=== PATIENT | female | born 1955 | race Caucasian/White ===

== ENCOUNTER → 2017-08-17 | Outpatient (CLI) | payer OTHER | LOC: FIMAGING 14:04 | PROVIDERS: ATTEND Family Medicine | DX: Z12.31 Encounter for screening mammogram for malignant neoplasm of breast (principal) | CPT/HCPCS: G0202 ==

== ENCOUNTER → 2017-08-31 | Outpatient (CLI) | payer OTHER | LOC: FIMAGING 12:01 | PROVIDERS: ATTEND Family Medicine | DX: N60.02 Solitary cyst of left breast (principal) ==

== ENCOUNTER → 2018-10-03 | Outpatient (CLI) | payer OTHER, MEDICARE | LOC: BHLMT 11:30 | PROVIDERS: ATTEND Nurse Practitioner Family | DX: G47.30 Sleep apnea, unspecified (principal); I10 Essential (primary) hypertension; E78.5 Hyperlipidemia, unspecified | CPT/HCPCS: 93005-PO ==

== ENCOUNTER → 2018-10-17 | Outpatient (CLI) | payer OTHER, MEDICARE | LOC: FIMAGING 12:39 | PROVIDERS: ATTEND Family Medicine | DX: R92.8 Other abnormal and inconclusive findings on diagnostic imaging of breast (principal) ==

== ENCOUNTER → 2018-11-06 | Outpatient (CLI) | payer OTHER, MEDICARE ==
[~2018-11-06] MED LIST: THROMBIN (BOVINE) 5,000 UNIT VIAL TP ONE
== END ==
LOC: FIMAGING 07:35
PROVIDERS: ATTEND Family Medicine
DX: N63.20 Unspecified lump in the left breast, unspecified quadrant (principal); D05.12 Intraductal carcinoma in situ of left breast

== ENCOUNTER → 2018-12-05 | Outpatient (CLI) | payer OTHER, MEDICARE ==
[~2018-12-05] MED LIST changes: +GADOBUTROL 10 ML VIAL IVP ONE; -THROMBIN (BOVINE) 5,000 UNIT VIAL TP ONE
== END ==
LOC: FIMAGING 11:10
PROVIDERS: ATTEND Surgery
DX: C50.211 Malignant neoplasm of upper-inner quadrant of right female breast (principal); C50.212 Malignant neoplasm of upper-inner quadrant of left female breast; Z17.0 Estrogen receptor positive status [ER+]
CPT/HCPCS: A9585; C8908; 82565-PO

== ENCOUNTER 2019-01-08 06:28 | Day surgery (SDC) | payer OTHER, MEDICARE ==
--- NOTE | 2019-01-06 16:48 | GHP ---
[f rep st] PREOP HISTORY AND PHYSICAL DATE OF ADMISSION: 01/08/2019 DATE OF SURGERY: 01/08/2019. PREOPERATIVE DIAGNOSIS: Left breast invasive ductal carcinoma. HISTORY OF PRESENT ILLNESS: A 63-year-old woman who underwent screening mammogram in August 2018 which showed an architectural distortion of the deep superior left breast at approximately 11 o'clock position, 5 cm from the nipple. Ultrasound on 10/07/2018 showed 1 cm hypoechoic lesion at 11 o'clock of the left breast, as well as a lymph node with thickened cortex measuring 5 mm. Biopsy was done on 11/07/2018, showed invasive ductal carcinoma. Lymph node was negative for malignancy. The mass is not palpable. She has no other breast changes including nipple drainage. Family history significant for maternal aunt with breast cancer. First menses at age 13. No hormone replacement therapy. She is G2, P2, and 22 years old at the of her 1st child. She did have a breast MRI performed on 12/05/2018 which showed the known breast malignancy, left axillary lymph nodes with slightly thickened cortex, and no evidence of right breast cancer. PAST MEDICAL HISTORY: Allergies, asthma, basal cell, depression/anxiety, hypertension, hyperlipidemia, nephrolithiasis, sleep apnea. PAST SURGICAL HISTORY: Tubal ligation, Mohs surgery for basal cell. ALLERGIES: Amlodipine, atenolol, bupropion, Bystolic, Cardizem, diltiazem, Benadryl, estrogen, hydrochlorothiazide, irbesartan, lisinopril, losartan, Micardis, naproxen, Sudafed, sulfa, Zoloft. FAMILY HISTORY: Significant for breast cancer in a maternal aunt; colon cancer , stroke in maternal grandmother. Alcoholism. SOCIAL HISTORY: She is with 2 children. 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 She is a former smoker, quit at age 56, and denies current tobacco, alcohol or recreational drug use. REVIEW OF SYSTEMS: No fevers or chills. PHYSICAL EXAMINATION: GENERAL: Well-developed, well-nourished woman in no acute distress. HEENT: Normocephalic, atraumatic. No hearing deficits. Pupils equal and round. No scleral icterus. Mucous membranes moist. Trachea midline. RESPIRATORY: No increased work of breathing. Clear to auscultation bilaterally. CARDIOVASCULAR: No peripheral edema. Regular rate and rhythm. BREASTS: Exam performed in upright and supine position. No new findings. LYMPH: No cervical, supraclavicular, axillary lymphadenopathy. PSYCH: Mood and affect normal. NEURO: Grossly intact. IMPRESSION AND PLAN: A 63-year-old woman with new left breast invasive ductal carcinoma. There is no overt sign of malignancy in axilla but slightly thickened cortex. We will proceed with left breast lumpectomy with mammogram needle localization and left sentinel lymph node biopsy. We discussed risks of surgery including, but not limited to, heart attack, stroke, blood clots, or . We discussed risk of infection, bleeding, damage to surrounding structures, need for additional procedures, or lymphedema. She understands the risks and would like to proceed. The patient additionally seen by Dr. Guera Kapadia, who agrees with the above impression and plan. /[id number]/MODL MTDD
[2019-01-08] MEDS ORDERED: ceFAZolin 2 GM/DEXTROSE 100 ML IV ONE (06:53)
[2019-01-08] MEDS ORDERED: LIDOCAINE 1% 300 MG/30 ML SDV ONE ×2 (07:11→08:05)
[2019-01-08] MEDS ORDERED: LR 1,000 ML IV ONE (07:18)
[2019-01-08] MEDS ORDERED: BUPIVACAINE 0.5% 30 ML SDV ONE ×2 (08:05→09:41)
[2019-01-08] MEDS ORDERED: MIDAZOLAM 2 MG/2 ML VIAL IVP ONE (09:16)
--- NOTE | 2019-01-08 09:16 | PDANEPAE ---
ANE History of Present Illness 63 yo for lumpectomy/snb ANE Past Medical History - Cardiovascular History Hx Hypertension: Yes Hx Arrhythmias: No Hx Chest Pain: No Hx Coronary Artery / Peripheral Vascular Disease: No Hx CHF / Valvular Disease: No Hx Palpitations: No - Pulmonary History Hx COPD: No Hx Asthma/Reactive Airway Disease: Yes Hx Recent Upper Respiratory Infection: No Hx Oxygen in Use at Home: No Hx Sleep Apnea: Yes Sleep Apnea Screening Result - Last Documented: Positive Pulmonary History Comment: FELICIANO Positive - wears cpap at night - Neurologic History Hx Cerebrovascular Accident: No Hx Seizures: No Hx Dementia: No - Endocrine History Hx Diabetes: No - Renal History Hx Renal Disorders: No Renal History Comment: has had kidney stones in the past - Liver History Hx Hepatic Disorders: No Hepatic History Comment: states has had elevated liver enzymes in the past - Neurological & Psychiatric Hx Hx Neurological and Psychiatric Disorders: No - Cancer History Hx Cancer: Yes Cancer History Comment: basal cell CA removed from face - Congenital Disorder History Hx Congenital Disorders: No - GI History Hx Gastrointestinal Disorders: No - Other Health History Other Health History: bruises easily/senile purpura. current oral herpes outbreak. chronic bilateral knee pain - Chronic Pain History Chronic Pain: Yes (bilateral knees) - Surgical History Prior Surgeries: tonsillectomy. tubal ligation. breast bx. basal cell removal from face ANE Review of Systems Review of Systems: - Exercise capacity METS (RN): 3 METS ANE Patient History - Allergies Allergies/Adverse Reactions: amlodipine [From Thu] Allergy (Verified 01/08/19 06:54) dizziness, heart palpatations, hot flashes, insomnia atenolol Allergy (Verified 01/08/19 06:54) sharp headaches, itching hands, leg cramps bupropion [From Wellbutrin] Allergy (Verified 01/08/19 06:54) hives, itching carvedilol Allergy (Verified 01/08/19 06:54) weakness, intense knee pain, dizziness diltiazem Allergy (Verified 01/08/19 06:54) leg cramps and pain, leg and ankle swelling estradiol [From Estrace] Allergy (Verified 01/08/19 06:54) leg cramps, bloating, headaches, moodiness hydrochlorothiazide Allergy (Verified 01/08/19 06:54) severe calf cramps, pain in right knee irbesartan Allergy (Verified 01/08/19 06:54) flu like symptoms, leg cramps, headache lisinopril Allergy (Verified 01/08/19 06:54) coughing spells, knee pain losartan Allergy (Verified 01/08/19 06:54) sharp headaches, muscle aches, sneezing medroxyprogesterone [From Provera] Allergy (Verified 01/08/19 06:54) leg cramps, bloating, headaches, moodiness mineral oil Allergy (Verified 01/08/19 06:54) Rash naproxen Allergy (Verified 01/08/19 06:54) Diarrhea nebivolol [From Bystolic] Allergy (Verified 01/08/19 06:54) dizziness, vomiting, diarrhea, SOB, knee pain olmesartan [From Thu] Allergy (Verified 01/08/19 06:54) dizziness, heart palpatations, hot flashes, insomnia sertraline [From Zoloft] Allergy (Verified 01/08/19 06:54) extreme headache Sulfa (Sulfonamide Antibiotics) Allergy (Verified 01/08/19 06:54) severe leg cramps telmisartan [From Micardis] Allergy (Verified 01/08/19 06:54) swollen ankles, achey calves, cough control pills Allergy (Uncoded 01/08/19 06:54) itchy ulcerations tisac Allergy (Uncoded 01/08/19 06:54) leg cramps and pain, leg and ankle swelling - Home Medications Home Medications: Chlorthalidone 12/23/18 [Last Taken 01/01/19] Fexofenadine HCl 12/23/18 [Last Taken 01/08/19] Herbals/Supplements -Info Only 12/23/18 [Last Taken 01/08/19] Symbicort 160-4.5 Mcg Inh (*) 12/23/18 [Last Taken 01/08/19] - NPO status NPO Status: no food or drink >8 hours NPO Since - Liquids (Date): 01/08/19 NPO Since - Liquids (Time): 02:00 NPO Since - Solids (Date): 01/07/19 NPO Since - Solids (Time): 21:00 - Smoking Hx Smoking Status: Former smoker - Family Anes Hx Family Hx Anesthesia Complications: none ANE Labs/Vital Signs - Vital Signs Blood Pressure: 162/98 Heart Rate: 74 Respiratory Rate: 16 O2 Sat (%): 94 Height: 5 ft 3 in Weight: 82.554 kg ANE Physical Exam - Airway Neck exam: FROM Mallampati Score: Class 2 Mouth exam: normal dental/mouth exam - Pulmonary Pulmonary: no respiratory distress - Cardiovascular Cardiovascular: regular rate and rhythym - ASA Status ASA Status: III ANE Anesthesia Plan Anesthesia Plan: GA w LMA
[2019-01-08] MEDS ORDERED: PROPOFOL/EMULSION 500 MG/50 ML BOTTLE IV ONE (09:30)
[2019-01-08] MEDS ORDERED: fentaNYL 100 MCG/2 ML INJ ONE ×2 (09:30→11:52)
[2019-01-08] MEDS ORDERED: METOCLOPRAMIDE 10 MG/2 ML VIAL ONE (09:31)
[2019-01-08] MEDS ORDERED: DEXAMETHASONE 4 MG/ML VIAL ONE (09:31)
--- NOTE | 2019-01-08 09:56 | PDHPUP ---
History & Physical Update H&P update statement: This history and physical update is based on an assessment of the patient which was completed after admission or registration (within 24 hours), but prior to the surgery/procedure. H&P update: H&P reviewed & patient examined, no change in patient's condition since H&P completed
[2019-01-08] MEDS ORDERED: ONDANSETRON 4 MG/2 ML VIAL ONE (10:57)
[2019-01-08] MEDS ORDERED: ONDANSETRON 4 MG/2 ML VIAL IVP PRN (11:10)
[2019-01-08] MEDS ORDERED: PROMETHAZINE HCL 25 MG/ML INJ IVP PRN (11:10)
[2019-01-08] MEDS ORDERED: oxyCODONE IR 5 MG TAB PO PRN (11:10)
[2019-01-08] MEDS ORDERED: NALOXONE HCL 0.4 MG/ML INJ IVP PRN (11:10)
[2019-01-08] MEDS ORDERED: ALBUTEROL 3 ML DEYVIAL IH PRN (11:10)
--- NOTE | 2019-01-08 11:37 | POSTOPPROG ---
Post Op Note Date of Operation: 01/08/19 Surgeon: Guera Kapadia Dope Sprayer: ramila Anesthesiologist: kia Anesthesia: GET(General Endotracheal) Pre-op Diagnosis: L breast invasive ductal ca Post-op Diagnosis: same Indication: 63yo F with breast ca Procedure: L lumpectomy with L SLN biopsy Findings: none unusual. Clip in specimen Inf/Abcess present in the surg proc area at time of surgery?: No EBL: Minimal Complications: none immediately post-op Bowel Protocol: N/A Clean Closure Performed: N/A Specimen(s): L lumpectomy additional margins L axillary SLN
[2019-01-08] MEDS: fentaNYL 100 MCG/2 ML INJ IVP PRN ×2 (11:57→12:07)
--- NOTE | 2019-01-08 11:58 | POSTANESTH ---
Post Anesthetic Evaluation Cardiovascular Status: Normal, Stable Respiratory Status: Normal, Stable Level of Consciousness/Mental Status: Can Participate in Eval Pain Control: Adequate, Prn Tx Ordered Nausea/Vomiting Control: Adequate, Prn Tx Ordered Complications Possibly Related to Anesthesia: None Noted
[2019-01-08 13:42] VITALS: BP 147/65
--- NOTE | 2019-01-15 11:50 | GOP ---
[f rep st] OPERATIVE REPORT DATE OF OPERATION: 01/08/2019 SURGEON: Guera Kapadia MD HADOOP APPLICATION DEVELOPER: Elizabeth Costello PA-C. ANESTHESIA: General. ANESTHESIOLOGIST: Dr. Woodruff. PREOPERATIVE DIAGNOSIS: Left breast invasive ductal carcinoma. POSTOPERATIVE DIAGNOSIS: Left breast invasive ductal carcinoma. PROCEDURE PERFORMED: Left breast needle localized lumpectomy with left sentinel lymph node biopsy. FINDINGS: Clip in specimen. ESTIMATED BLOOD LOSS: Minimal. INDICATIONS: The patient is a 63-year-old woman with new diagnosis of left breast cancer. DESCRIPTION OF PROCEDURE: The patient was brought into the operating room, placed supine on the tabl e, and anesthesia was administered. Her left breast was prepped and draped in the usual sterile fash ion. I infiltrated all sites with 0.5% Marcaine prior to making incision. I made an incision around the wire. I created superior and inferior skin flaps. I dissected down beyond the level of the wir e. I marked it green anterior, red superior, yellow medial, blue inferior, orange lateral, black pos terior. I sent this to Radiology. The clip was contained in the specimen. I took an additional sup erior margin inked red, medial margin inked yellow, inferior margin inked blue, lateral margin inked orange, posterior margin inked black. These were submitted to Pathology for permanent. Clips placed in the cavity and the cavity was closed, the deep layer with 3-0 Vicryl, skin closed with 3-0 Vicryl , followed by 4-0 Monocryl. I made an incision beneath the hair-bearing portion in her axilla. Dissected down through the subcut aneous space. I entered the axillary space. I used the gamma probe to identify the sentinel lymph n ode. I circumferentially dissected this and excised it. This was sent to Pathology for permanent. Hemostasis achieved. I closed this with 3-0 Vicryl, followed by 4-0 Monocryl. Mastisol, Steri-Strip s, and sterile dressings were placed on the incision. She was awakened in the operating room, transf erred to PACU in stable condition. /[id number]/MODL
== END 2019-01-08 13:45 | disposition home or self-care (01) ==
LOC: FSGY 06:28
PROVIDERS: ATTEND Surgery
PROC: 3E0W3HZ Introduction of Radioactive Substance into Lymphatics, Percutaneous Approach (ICD-10-PCS; 2019-01-08)
PROC: 0HBU0ZZ Excision of Left Breast, Open Approach (ICD-10-PCS; principal; 2019-01-08 09:45)
PROC: 07B60ZX Excision of Left Axillary Lymphatic, Open Approach, Diagnostic (ICD-10-PCS; principal; 2019-01-08 09:45)
PROC: 0HHU3YZ Insertion of Other Device into Left Breast, Percutaneous Approach (ICD-10-PCS; 2019-01-08 09:45)
DX: C50.412 Malignant neoplasm of upper-outer quadrant of left female breast (principal); D36.0 Benign neoplasm of lymph nodes; Z17.0 Estrogen receptor positive status [ER+]; I10 Essential (primary) hypertension; E78.5 Hyperlipidemia, unspecified; G47.33 Obstructive sleep apnea (adult) (pediatric); Z87.442 Personal history of urinary calculi; Z87.891 Personal history of nicotine dependence; Z88.2 Allergy status to sulfonamides
CPT/HCPCS: 19301; 38525; 76098; 78195; A9520; J0690; J1100; J2250; J2405; J2704; J2765; J3010